=== PATIENT | female | born 1965 | race Caucasian/White ===

== ENCOUNTER 2016-08-27 08:17 | Emergency (ER) | payer BC ==
[~2016-08-27] VITALS: Ht 182.9 cm; Wt 92.0 kg
[~2016-08-27 08:17] MED LIST: ATARAX,VISTARIL25 MG PO; CEFDINIR300 MG PO; MOTRIN600 MG PO; NORCO 5/3251 TABLET PO; PHENERGAN25 MG PR; PROMETHAZINE HC25 M1 PO; SYNTHROID137 MCG PO; ZANTAC150 MG PO
[2016-08-27 09:48] LABS: HEMATOCRIT 33.3 % (36.0-46.0); MCH 21.1 PG (29.0-34.0); MCHC 28.8 G/DL (30.0-36.0); MCV 73.3 FL (83-99); MEAN PLAT.VOLUME 9.4 uM^3 (9.5-12.4); PLATELET COUNT 338 K/uL (156-360); RBC DIS.WIDTH-CV 17.1 % (11.8-14.6); RBC DIS.WIDTH-SD 45.1 % (39-53); RED BLOOD COUNT 4.54 M/uL (3.80-5.20)
[2016-08-27 09:51] LABS: CHLORIDE 106 mEq/L (99-109); POTASSIUM 4.3 mEq/L (3.7-5.4); SODIUM 136 mEq/L (136-147)
[2016-08-27 09:53] LABS: GLUCOSE 94 mg/dL (70-99)
[2016-08-27 09:54] LABS: ANION GAP 7 MEQ/L (2-14)
[2016-08-27 09:55] LABS: TOTAL BILIRUBIN 0.4 mg/dL (0.0-1.0)
[2016-08-27 09:56] LABS: ALKALINE PHOSPHATASE 101 IU/L (3-129)
[2016-08-27 09:57] LABS: GFR ESTIMATE (CALCULATED) > 59 mL/min/
[2016-08-27 09:58] LABS: UREA NITROGEN (BUN) 10 mg/dL (9-23)
[2016-08-27 10:00] LABS: LIPASE 15 U/L (1.0-51.0)
[2016-08-27 10:04] LABS: TROP-I INTERPRETATION NEGATIVE; TROPONIN-I < 0.01 ng/mL (0.0-0.30)
[2016-08-27 10:23] LABS: ADD MIUA? NO; BILIRUBIN NEGATIVE; BLOOD NEGATIVE; COLOR STRAW ((YELLOW)); GLUCOSE (STRIP) NEGATIVE; KETONES NEGATIVE; LEUKOCYTES NEGATIVE; NITRITE NEGATIVE; PROTEIN (STRIP) NEGATIVE; SPECIFIC GRAVITY 1.009 (1.000-1.030); UROBILINOGEN 0.2 MG/DL (0.2-1.0)
[2016-08-27] MEDS ORDERED: NORCO 5/3251 TABLET PO (11:09)
[2016-08-27] MEDS ORDERED: STOOL SOFTENER250 MG PO (11:09)
[2016-08-27] MEDS ORDERED: ZOFRAN ODT4 MG PO (11:09)
[2016-08-27] MEDS ORDERED: REGLAN5 MG PO (11:32)
[2016-08-27 12:05] VITALS: BP 120/79
== END 2016-08-27 12:09 | disposition home or self-care (01) ==
LOC: EME 08:17
PROVIDERS: Nurse Practitioner Family
DX: K80.20 Calculus of gallbladder without cholecystitis without obstruction (principal); D50.9 Iron deficiency anemia, unspecified; E03.9 Hypothyroidism, unspecified; F17.200 Nicotine dependence, unspecified, uncomplicated
CPT/HCPCS: 71020; 76705; 80053; 81003; 83690; 84484; 85027; 93005; 99281; 99285; J1885; J7030

== ENCOUNTER → 2016-09-20 | Outpatient (CLI) | payer BC ==
[~2016-09-20] MED LIST changes: +REGLAN5 MG PO; +STOOL SOFTENER250 MG PO; +ZOFRAN ODT4 MG PO
== END | disposition home or self-care (01) ==
LOC: NUC 07:00
DX: R94.5 Abnormal results of liver function studies (principal); K80.20 Calculus of gallbladder without cholecystitis without obstruction
CPT/HCPCS: 78227; A9510; J2270

== ENCOUNTER 2016-10-20 10:08 | Day surgery (SDC) | payer BC ==
[~2016-10-20] VITALS: Ht 180.3 cm; Wt 91.1 kg
[~2016-10-20 10:08] MED LIST changes: +IBUPROFEN400 MG PO; +SYNTHROID150 MCG PO
[2016-10-20 10:49] VITALS: BP 121/64
[2016-10-20] MEDS ORDERED: PERCOCET 5/31 TABLET PO (14:15)
[2016-10-20] MEDS ORDERED: COLACE100 MG PO (14:15)
[2016-10-20 16:41] VITALS: BP 110/65
[2016-10-20 17:41] VITALS: BP 116/58
== END 2016-10-20 17:42 | disposition home or self-care (01) ==
LOC: SDC 10:08
PROC: 0FT44ZZ Resection of Gallbladder, Percutaneous Endoscopic Approach (ICD-10-PCS; principal; 2016-10-20)
DX: K80.10 Calculus of gallbladder with chronic cholecystitis without obstruction (principal); F41.9 Anxiety disorder, unspecified; D64.9 Anemia, unspecified; E03.9 Hypothyroidism, unspecified; E66.3 Overweight; Z68.27 Body mass index [BMI] 27.0-27.9, adult; F17.210 Nicotine dependence, cigarettes, uncomplicated; Z83.42 Family history of familial hypercholesterolemia; Z82.49 Family history of ischemic heart disease and other diseases of the circulatory system; Z84.1 Family history of disorders of kidney and ureter; Z80.8 Family history of malignant neoplasm of other organs or systems
CPT/HCPCS: 88304; J0330; J1100; J1170; J1885; J2250; J2710; J2765; J3010